=== PATIENT | female | born 1990 | race Caucasian/White ===

== ENCOUNTER 2020-05-27 19:30 | Inpatient (IN) | payer MEDICAID ==
[~2020-05-27] VITALS: Ht 154.9 cm; Wt 71.7 kg
[~2020-05-27 19:30] MED LIST: APAP/HYDROCODON1 T13 PO
[2020-05-27 19:49] VITALS: Ht 154.9 cm; Wt 71.7 kg
[2020-05-27 20:11] LABS: BASOPHIL % 0.3 % (0.2-1.3); PLATELET COUNT 314 x10^3mcL (179-408)
[2020-05-27 20:22] LABS: CARBON DIOXIDE 25.3 mmol/L (21-32); CHLORIDE SERUM 95 mmol/L (98-107); CREATININE SERUM 0.7 mg/dL (0.6-1.0); GFR1 > 60 mL/min; GLUCOSE SERUM 102 mg/dL (74-106); POTASSIUM SERUM 3.8 mmol/L (3.5-5.1); SODIUM SERUM 130 mmol/L (136-145)
[2020-05-27 20:26] LABS: ALBUMIN 3.9 g/dL (3.4-5.0); ALKALINE PHOSPHATASE 148 U/L (46-116); ALT/SGPT 318 U/L (14-59); AST/SGOT 453 U/L (15-37); BILIRUBIN TOTAL 0.7 mg/dL (0.20-1.00)
[2020-05-27 20:27] LABS: RED CELL DISTRIBUTION WIDTH 18.9 % (12.3-17.7); TOTAL PROTEIN, SERUM 8.4 g/dL (6.4-8.2)
--- NOTE | 2020-05-27 21:01 | NUR ---
PT BIB SELF WITH C/O GENERALIZED, NONRADIATING 10/10 ABD PAIN SINCE TODAY AND VAGINAL BLEEDING X2 WEEKS. PT STATES HAVING ONE VOMITUS EPISODE TODAY AT APPROXIMATELY 1230 AND HAS NAUSEA AT THIS TIME, DENIES C/D. PT IS A&OX4, RESPS E/U, LUNGS CTA, NSR NOTED ON FULL CM, PLACED IN GOWN AND IN POSITION OF COMFORT. PT DOES NOT APPEAR TO BE IN ACUTE DISTRESS AT THIS TIME, AWAIITNG MSE. WILL CONT TO MONITOR.
--- NOTE | 2020-05-27 21:21 | NUR ---
DR SLADE AT BEDSIDE FOR MSE.
--- NOTE | 2020-05-27 22:22 | NUR ---
NO PHELMOTOMY IN ER AT THIS TIME. CALLED LAB TO SEE IF SERUM HCG AND LIPASE LABS CAN BE RAN USING PREVIOUS BLOOD DRAW COLLECTION. LAB WILL USE PREVIOUS BLOOD DRAW COLLECTION FOR SERUM HCG AND LIPASE.
--- NOTE | 2020-05-27 23:16 | NUR ---
U/S IN PROGRESS AT BEDSIDE.
--- NOTE | 2020-05-28 02:53 | NUR ---
REPORT GIVEN TO CORTES DRUMMOND TO ASSUME PT CARE.
--- NOTE | 2020-05-28 04:00 | NUR ---
PT NEW ADMIT ADMITTED TO UNIT MS/ WITH C/O ABDOMINAL PAIN/ EPIGASTRIC PAIN X1 DAY WITH N/V X1. PT DX WITH ACUTE PANCREATITIS, A/OX4 WITH NO ACUTE DISTRESS OBSERVED ON ROOM AIR AND TOLERATING WELL. PT DENIES PAIN AT THIS TIME, ACTIVE BS LAST BM 05/27/20, CLEAR BREATH SOUNDS, SKIN INTACT OLD SURGICAL SCAR LAP SITES X3 TO ABDOMEN THAT IS IS COMPLETELY HEALED. PT WITH 20G IV TO RFA GOOD BLOOD RETURN AND FLUSHES WELL. PT NEPALESE SPEAKING AND STAFF TRANSLATED. PT ORIENTATED TO ROOM/CALL KO. SAFETY PRECAUTONS IN PLACE. CALL KO IN REACH.
[2020-05-28 06:41] VITALS: BP 95/60
[2020-05-28 06:48] LABS: CALCIUM 8.3 mg/dL (8.5-10.1); CARBON DIOXIDE 25.2 mmol/L (21-32); CHLORIDE SERUM 103 mmol/L (98-107); CREATININE SERUM 0.6 mg/dL (0.6-1.0); GFR1 > 60 mL/min; GLUCOSE SERUM 87 mg/dL (74-106); POTASSIUM SERUM 3.5 mmol/L (3.5-5.1); SODIUM SERUM 135 mmol/L (136-145)
--- NOTE | 2020-05-28 06:52 | NUR ---
PT AWAKE ALERT AND ORIENTED X 4 WITH NO S/S OF ACUTE DISTRESS OBSERVED, RESP EVEN AND UNLABORED. PT DENIES PAIN ON SHIFT. IV TO RFA C/D/I AND FLUIDS INFUSING ORDERED. CALL KO IN REACH.
[2020-05-28 07:02] LABS: BASOPHIL % 0.5 % (0.2-1.3); PLATELET COUNT 260 x10^3mcL (179-408)
[2020-05-28 07:32] LABS: RED CELL DISTRIBUTION WIDTH 18.6 % (12.3-17.7)
--- NOTE | 2020-05-28 07:55 | NUR ---
Resident compensation and benefits administrator phone was called to notify Dr that pt's hgb is now down to 7.4. Resident stated ok. Noted.
[2020-05-28 08:00] VITALS: BP 96/55
--- NOTE | 2020-05-28 08:00 | NUR ---
Pt is awake and denies pain. No distress noted. Pt's BP was rechecked d/t hypotensive reported by CALENDAR CONTROL CLERK BLOOD BANK. BP now 131/53. Pt denies any pain, no distress noted. Pt can ambulate to the bathroom. Supplies to collect UA are now in the bathroom. Safety will be maintained with upper siderails up, bed in low position and wheels locked. Call light is within reach. Will continue to monitor and assess as needed.
[2020-05-28 08:15] VITALS: BP 131/53
[2020-05-28 09:21] LABS: RED BLOOD CELLS 3.91 M/mm3 (4.10-5.10)
[2020-05-28 09:33] LABS: IRON 24 ug/dL (50-170); TOTAL IRON BINDING CAPACITY 508 ug/dL (250-450)
[2020-05-28 10:41] LABS: CHOLESTEROL/HDL RATIO 3.3
[2020-05-28 11:40] LABS: UA SPECIFIC GRAVITY >=1.030 (1.005-1.035); microscopic required? YES; urine erythrocyte 3+ (NEGATIVE)
[2020-05-28 12:07] LABS: AMPHETAMINE QUAL UR NONE DETECTED (See below)
[2020-05-28 12:11] VITALS: BP 104/68
--- NOTE | 2020-05-28 12:48 | NUR ---
Discount pharmacy card and list to low cost medical clinics given to patient.
[2020-05-28 16:43] VITALS: BP 100/65
--- NOTE | 2020-05-28 19:41 | NUR ---
R RECEIVED REPORT PT AWAKE ALERT AND ORIENTED X4 WITH NO S/S OF ACUTE DISTRESS OBSERVED RESP EVEN AND UNLABORED. IV WITH NO S/S OF INFILTRATION IV INFUSING. CALL KO IN REACH.
[2020-05-28 19:47] VITALS: BP 112/67
[2020-05-29 05:27] VITALS: BP 96/55
[2020-05-29 06:34] LABS: CALCIUM 8.2 mg/dL (8.5-10.1); CARBON DIOXIDE 25.2 mmol/L (21-32); CHLORIDE SERUM 107 mmol/L (98-107); CREATININE SERUM 0.7 mg/dL (0.6-1.0); GFR1 > 60 mL/min; GLUCOSE SERUM 79 mg/dL (74-106); PHOSPHOROUS 3.4 mg/dL (2.5-4.9); POTASSIUM SERUM 3.8 mmol/L (3.5-5.1); SODIUM SERUM 140 mmol/L (136-145)
[2020-05-29 06:45] LABS: BILIRUBIN DIRECT 0.07 mg/dL (0.0-0.2); BILIRUBIN TOTAL 0.27 mg/dL (0.20-1.00); TOTAL PROTEIN, SERUM 6.3 g/dL (6.4-8.2)
[2020-05-29 06:46] LABS: ALBUMIN 2.9 g/dL (3.4-5.0)
[2020-05-29 07:16] LABS: BASOPHIL % 0.6 % (0.2-1.3)
[2020-05-29 07:18] LABS: PLATELET COUNT 209 x10^3mcL (179-408)
[2020-05-29 07:24] LABS: RED CELL DISTRIBUTION WIDTH 18.9 % (12.3-17.7)
--- NOTE | 2020-05-29 07:30 | NUR ---
REPORT RECEIVEED FROM NIGHT RN. PT IS CURRENTLY AWAKE, A/Ox4. BAHAMIAN SPEAKING ONLY. DENIES SOB THIS TIME BUT PT REPORTS MANAGEABLE HEADACHE 06/04, NO NEED FOR PAIN MEDICATION. RUNNING 200ml/hr NS ON RAC 20g. SAFETY PRECAUTIONS IN PLACE. CALL LIGHT WITHIN REACH. WILL CONTINUE TO MONITOR.
--- NOTE | 2020-05-29 07:44 | NUR ---
SPOKE TO IVIS HECTOR AND REPORTED H/H 6.12/18 WITH PREVIOUS PROGRESS NOTE SUGGESTING PRBC TRANSFUSION WHEN HGB IS <7. DECREASED Hgb ATTRIBUTED TO HEMODILUTION, D/C 200ml/hr NS AND REDRAW LABS AT 1200 TODAY.
[2020-05-29 08:36] VITALS: BP 105/62
--- NOTE | 2020-05-29 09:24 | NUR ---
PT BEING TAKEN TO OR BY PAT BY HODA ZHOU. PER CHANTE COHEN TO HOLD MORNING MEDS UNTIL PT RETURNS FROM ERCP
--- NOTE | 2020-05-29 09:25 | NUR ---
GAVE REPORT TO OR NURSE MATT FOR ERCP
--- NOTE | 2020-05-29 10:32 | NUR ---
REPORT TAKEN FROM PLEAT PATTERNMAKERHODA GUTIERREZ. ERCP UNDER MAC PERFOREMD. GIVEN 350LR. LIBRA Oml. VS STABLE. PT WILL BE COMING UP SHORTLY.
[2020-05-29 10:57] VITALS: BP 139/82
--- NOTE | 2020-05-29 10:58 | NUR ---
PT BROUGHT UP FROM OR.
--- NOTE | 2020-05-29 12:40 | NUR ---
PT IS CURRENTLY EATING CLEAR LIQUID DIET, TOLERATING WELL.
--- NOTE | 2020-05-29 13:40 | NUR ---
PT IS CURRENTLY AWAKE, ON HER PHONE. STATES PAIN IS 2/10 THIS TIME. PT REFUSES PAIN MEDICATION AT THIS TIME, IT IS MANAGEABLE. SAFETY PRECAUTOINS IN PLACE. CALL LIGHT WITHIN REACH. WILL CONTINUE TO MONITOR.
--- NOTE | 2020-05-29 13:45 | NUR ---
WITH COMPUTER TECHNOLOGY TRAINER LEONIDES FUNEZ ([id number]), REVIEWED EGD AND COLONOSCOPY CONSENT FORM WITH PT AND CONFIRMED THAT DR REVIEWED PROCEDURE WITH HER. PT STATES SHE DOES NOT HAVE ANY QUESTIONS. PT REPORTS 6/10 PAIN AND DOES NOT WANT PAIN MEDICATION. PT EDUCATED ABOUT BOWEL PREP AND USE OF BEDSIDE COMMODE IF NEEDED (PREPPED BY BEDSIDE). PT REPORTS SHE HAS NO QUESTIONS FOR NOW. EGD AND COLONOSCOPY CONSENT FORMS SGINED. SAFETY PRECAUTIONS IN PLACE. CALL LIGHT WITHIN REACH. WILL CONTINUE TO MONITOR.
[2020-05-29 16:23] VITALS: BP 109/67
--- NOTE | 2020-05-29 17:17 | NUR ---
PT WAS GIVEN #1 DOSE OF BOWEL PREP AT 1644. PT HAS JUST FINISHED 2x16oz OF WATER AFTER DRINKING BOWEL PREP. BSC COMMODE HAS ALREADY BEEN SET UP WITH WIPES. PT INSTRUCTED TO USE BSC WHEN SHE NEEDS TO HAVE A BM. PT UNDERSTANDS THAT SECOND DOSE WILL BE GIVEN ON LATER TONIGHT, MOST LIKELY AROUND 5am. 2nd DOSE LEFT IN PT's MEDICATION DRAWER AT [facility].
--- NOTE | 2020-05-29 19:40 | NUR ---
PT AWAKE ALERT AND ORIENTED X4 WITH NO S/S OF ACUTE DISTRESS OBSERVED. PT IV C/D/I WITH NO S/S OF INFILTRATION OBSERVED. PT DENIES PAIN. BOWEL PREP IN PROGRESS FOR AM EGD/ COLONOSCOPY PROCEDURE. CALL KO IN REACH.
[2020-05-29 20:22] VITALS: BP 127/82
[2020-05-30 05:33] VITALS: BP 101/65
[2020-05-30 06:26] LABS: BASOPHIL % 0.6 % (0.2-1.3); PLATELET COUNT 297 x10^3mcL (179-408)
--- NOTE | 2020-05-30 06:42 | NUR ---
PT AWAKE ALERT AND ORIENTED X4, RESP EVEN AND UNLABORED. PT COMPLETED BOWEL PREP AND FOLLOWED BY 32 OZ OF H20. PT TOLERATED WELL, PT BM IS CURRENTLY LOOSE AND YELLOW. CONSENTS AND CHECK LLIST DONE FOR PROCEDURE. CALL KO IN REACH.
[2020-05-30 06:49] LABS: RED CELL DISTRIBUTION WIDTH 18.3 % (12.3-17.7)
[2020-05-30 07:06] LABS: CARBON DIOXIDE 24.8 mmol/L (21-32); CHLORIDE SERUM 106 mmol/L (98-107); CREATININE SERUM 0.9 mg/dL (0.6-1.0); GFR1 > 60 mL/min; GLUCOSE SERUM 96 mg/dL (74-106); POTASSIUM SERUM 4.3 mmol/L (3.5-5.1); SODIUM SERUM 142 mmol/L (136-145)
[2020-05-30 08:27] VITALS: BP 107/61
--- NOTE | 2020-05-30 08:46 | NUR ---
PATIENT ALERT AND AWAKE, A&OX4. GAVE REPORT TO GI AT 0840. STAFF CAME TO INVESTOR RELATIONS DIRECTOR PATIENT AT 0845. NO MEDICATIONS GIVEN THIS AM, PATIENT IS NPO. GATEKEEPER REPORTED LOOSE YELLOW STOOL. THIS NURSE HAS NOT SEEN PATIENT STOOL THIS AM. CONSENTS SIGNED, SURGICAL CHECKLIST COMPLETED.
--- NOTE | 2020-05-30 10:08 | NUR ---
RECEIVED REPORT FROM GI. PATIENT WAS NEGATIVE WITH EGD/COLONOSCOPY. SHE WAS PLACED ON A REGULAR DIET.
--- NOTE | 2020-05-30 10:31 | NUR ---
PATIENT RETURNED TO THE FLOOR. NURSE REPORTED EGD AND COLONOSCOPY WERE BOTH NEGATIVE.
[2020-05-30 12:01] VITALS: BP 100/65
[2020-05-30 16:51] VITALS: BP 105/68
--- NOTE | 2020-05-30 17:40 | NUR ---
PATIENT TOLERATING FOOD WELL. BED LOCKED IN LOWEST POSITION. CALL LIGHT IN REACH. SHE WAS ASKING WHEN SHE WILL BE DISCHARGED. SHE WAS INFORMED THAT ONLY THE DOCTOR CAN DISCHARGE A PATIENT BUT THAT SINCE THE TESTS WERE NEGATIVE THERE IS A CHANCE SHE COULD GO HOME TOMORROW. PATIENT DENIES PAIN OR NEEDING ANYTHING AT THIS TIME.
--- NOTE | 2020-05-30 19:20 | NUR ---
RECEIVED PATIENT FROM DAY SHIFT NURSE, PATIENT IN NO ACUTE DISRESS. AWAKE, ALERT AND ORIENTED X4. DENIES PAIN AT THIS TIME. EVEN AND UNLABORED BREATHING NOTED ON ROOM AIR. PATIENT S/P EGD, PATIENT STATED SHE PASSED GAS AND HAD A BM ALREADY. RAC IV WNL, NO ERYTHEMA/EDEMA AT IV SITE. BED IN LOWEST POSITION. CALL LIGHT WITHIN REACH. SIDE RAILS UP X2.
[2020-05-30 19:37] VITALS: BP 107/66
--- NOTE | 2020-05-30 22:15 | NUR ---
PT INFORMED OF OCB CULTURE NEEDED. INSTURCTED TO USE HAT AND USE CALL LIGHT IF SHE HAS A BM FOR SPECIMEN COLLECTION. CALL LIGHT WITHIN REACH.
--- NOTE | 2020-05-31 01:35 | NUR ---
PATIENT SLEEPING AT THIS TIME, NO C/O PAIN. E/U BREATHING NOTED ON ROOM AIR. BED IN LOWEST POSITION. CALL LIGHT WITHIN REACH. SIDE RAILS UPX2.
[2020-05-31 04:44] VITALS: BP 106/57
[2020-05-31 06:39] LABS: BASOPHIL % 0.7 % (0.2-1.3); PLATELET COUNT 261 x10^3mcL (179-408)
[2020-05-31 06:45] LABS: RED CELL DISTRIBUTION WIDTH 18.6 % (12.3-17.7)
[2020-05-31 06:46] LABS: rbc morphology (normal/abnorm) NORMAL (NORMAL)
--- NOTE | 2020-05-31 06:48 | NUR ---
PATIENT REMINDED THAT WE NEED A STOOL SPECIMEN, HAT IN RESTROOM WHEN READY. DENIES ABD PAIN AT THIS TIME. E/U BREATHING NOTED ON ROOM AIR. IV WNL. BED IN LOWEST POSITION. CALL LIGHT WITHIN REACH. SIDE RAILS UPX2. ALL NEEDS/CONCERNS ATTENDED TO AT THIS TIME.
[2020-05-31 06:54] LABS: CALCIUM 9.2 mg/dL (8.5-10.1); CARBON DIOXIDE 25.8 mmol/L (21-32); CHLORIDE SERUM 104 mmol/L (98-107); CREATININE SERUM 0.7 mg/dL (0.6-1.0); GFR1 > 60 mL/min; GLUCOSE SERUM 97 mg/dL (74-106); MAGNESIUM 2.1 mg/dL (1.8-2.4); POTASSIUM SERUM 4.1 mmol/L (3.5-5.1); SODIUM SERUM 137 mmol/L (136-145)
[2020-05-31 07:40] VITALS: BP 106/57
[2020-05-31 08:36] VITALS: BP 114/67
--- NOTE | 2020-05-31 08:43 | NUR ---
PATIENT SITTING ON SIDE OF BED. A&OX4. BED LOCKED IN LOWEST POSITION. CALL LIGHT IN REACH. DENIES PAIN. IV TO RFA IS SALINE LOCKED, PATENT. HYPOACTIVE BOWEL SOUNDS, PATIENT REPORTS HAVING BM SINCE PROCEDURES YESTERDAY. AN ORDER FOR OCCULT STOOL REMAINS ACTIVE. ASKED AEROSPACE MEDICINE PHYSICIAN IF SHE STILL WANTED THAT DONE AFTER ALL OF THE PROCEDURES WERE DONE AND WERE NEGATIVE. SHE SAID TO D/C THE ORDER AND THAT THE PATIENT WOULD BE D/C'D HOME TODAY.
[2020-05-31] MEDS ORDERED: THERA TABLET400 MCG PO (08:44)
[2020-05-31] MEDS ORDERED: LAC30L PO (08:44)
[2020-05-31] MEDS ORDERED: FOL1 PO (08:44)
[2020-05-31] MEDS ORDERED: FER300 PO (08:44)
--- NOTE | 2020-05-31 09:19 | NUR ---
WENT OVER DISCHARGE PAPERWORK WITH PATIENT AND ANSWERED ALL QUESTIONS - USED SURINAMESE SPEAKING ICT SUPPORT AND TEST ENGINEERS. EXPLAINED THAT SHE HAS A FOLLOW UP DR. MCMILLAN ON 06/11 AT 11 AM AND THAT THE DOCTOR CALLED IN PRESCRIPTIONS TO HER PHARMACY ([facility]) FOR HER TO J2EE ARCHITECT. SHE VERBALIZED UNDERSTANDING. REMOVED IV INTACT, NO PROBLEMS. REMOVED ID BAND AND SHREDDED. PATIENT CALLED SISTER TO COME PICK HER UP. PATIENT GETTING DRESSED. WILL LEAVE IN PRIVATE VEHICLE WITH ALL PERSONAL BELONGINGS ONCE SISTER ARRIVES.
== END 2020-05-31 09:48 | disposition home or self-care (01) | DRG 282 ==
LOC: ED 19:30 → MU 05-28 00:46
PROVIDERS: Internal Medicine Gastroenterology; ADMIT Internal Medicine; ATTEND Internal Medicine
PROC: 0F798ZZ Dilation of Common Bile Duct, Via Natural or Artificial Opening Endoscopic (ICD-10-PCS; principal; 2020-05-29 09:00)
PROC: 0DB68ZX Excision of Stomach, Via Natural or Artificial Opening Endoscopic, Diagnostic (ICD-10-PCS; 2020-05-30 09:00)
PROC: 0DJD8ZZ Inspection of Lower Intestinal Tract, Via Natural or Artificial Opening Endoscopic (ICD-10-PCS; 2020-05-30 09:00)
DX: K85.90 Acute pancreatitis without necrosis or infection, unspecified (principal); R65.10 Systemic inflammatory response syndrome (SIRS) of non-infectious origin without acute organ dysfunction; Z20.822 Contact with and (suspected) exposure to COVID-19; E87.1 Hypo-osmolality and hyponatremia; D64.9 Anemia, unspecified; R79.89 Other specified abnormal findings of blood chemistry; Z90.49 Acquired absence of other specified parts of digestive tract; Z79.899 Other long term (current) drug therapy; Z79.891 Long term (current) use of opiate analgesic; Z79.01 Long term (current) use of anticoagulants; K27.9 Peptic ulcer, site unspecified, unspecified as acute or chronic, without hemorrhage or perforation
CPT/HCPCS: 43235; 43262; 45378; C1769; C9113; G0378; J1200; J1610; J1885; J2250; J2270; J2310; J2405; J2704; J2916; J3010; J3490; J7030; J7042; Q9967